=== PATIENT | male | born 1955 | race Two or more races ===

== ENCOUNTER → 2017-05-12 | Outpatient (CLI) | payer BC ==
[~2017-05-12] MED LIST: ASPI81CH CHEW; BETA0.1L; HYDR-3583 PO; MULT-65 PO; PRAV10TA PO; VITA1000 PO
== END ==
LOC: CPRE 11:39
PROVIDERS: ATTEND Neurological Surgery
DX: M47.12 Other spondylosis with myelopathy, cervical region (principal); M48.02 Spinal stenosis, cervical region

== ENCOUNTER 2017-05-15 06:03 | Inpatient (IN) | payer BC ==
--- NOTE | 2017-05-14 19:23 | MH ---
cc: ALLISON SANCHEZ MD, SUNITA M.D. KHANNA, ROHIT K. M.D. GORDON, JEREMY DC DATE OF ADMISSION: 05/15/2017 ADMITTING DIAGNOSIS: Cervical stenosis. HISTORY OF PRESENT ILLNESS: This is a 61-year-old male who presented to us for evaluation of weakness in his hands and difficulty with balance and walking. He states he has had several orthopedic surgeries, and after his left knee surgery in 2005 he started getting pain in his right leg. He states that his physician thought it was from compensating from his left knee being arthritic requiring surgery. He was referred to neurology who ordered an MRI of his neck. He was referred to Dr. Farnsworth, who obtained an MRI scan of his low back and recommended epidural steroid injections and physical therapy for his back. He states he has been having difficulty with walking and balance for the last six months. He states that when he is walking at times he feels that he is dragging his leg. He saw his chiropractor who states he would not treat his neck but did not do a decompression on his low back. He states that the chiropractor recommended that he come to our office for evaluation for his neck. He states that four days ago he had pressure sensation in his neck and went to the emergency room. He states that two months ago he had a pressure sensation in his neck and went to the emergency room. He was given pain medication and muscle relaxants which he continues to take. He states he has had chronic back pain for about five years but this was an acute exacerbation of his pain. He states he has tingling in the middle of his back. He denies any urinary frequency or bowel or bladder incontinence. He states he gets waves in his neck and posterior right triceps area. He tried to explain what he meant by "waves" and he says it is hard to describe; it is not pain, it is not numbness or tingling. He denies any radiculopathy into the upper extremities although he was having some shooting pain into the right triceps to the elbow with activity such as sweeping the floor and he states that he decreased his activity and this had improved it. He also states he has a history of carpal tunnel syndrome, which was initially diagnosed in 2010. He has had two surgeries for this in his right wrist. He states his symptoms improved but have not resolved. He currently complains of numbness and tingling in the right third and fourth fingers in particular. He denies any paresthesias in his left hand. He is right-handed and has noticed some weakness opening jars and opening bottles of water. PAST MEDICAL HISTORY: His past medical history is significant for: 1. History of asthma. 2. Prior history of myocardial infarction. PAST SURGICAL HISTORY: 1. Right total knee replacement in 2014. 2. Left total knee replacement in 2016. 3. Hernia surgery. 4. History of right carpal tunnel release x2. CURRENT MEDICATIONS: 1. Aspirin 81 milligrams p.o. daily. 2. Betamethasone topical 0.1% lotion. 3. Pravastatin 10 milligrams daily. ALLERGIES: PENICILLIN. REVIEW OF SYSTEMS: CONSTITUTIONAL: He denies any fever or chills. EARS, NOSE AND THROAT: No pharyngitis, exudates or bloody drainage from his nose. CARDIOVASCULAR: He denies any chest pain or palpitations. RESPIRATORY: No cough or shortness of breath. GASTROINTESTINAL: No nausea or vomiting or abdominal pain. INTEGUMENTARY: No rashes or pruritus. PSYCHIATRIC: No anxiety or depression symptoms. MUSCULOSKELETAL: Positive for neck pain. NEUROLOGIC: No difficulty with speech or memory. Positive for numbness in his right hand. SOCIAL HISTORY: No history of smoking. No history of alcohol use. PHYSICAL EXAMINATION: HEAD: Normocephalic, atraumatic. NECK: The neck is supple. No carotid bruits heard on auscultation. LUNGS: Clear to auscultation bilaterally. HEART: Regular rate and rhythm. Normal S1-S2. ABDOMEN: Soft, nontender. Positive bowel sounds. SKIN: Reveals no cyanosis or erythema. MUSCULOSKELETAL: He has 4/5 hand intrinsic strength otherwise 5/5 strength in the upper extremities. He ambulates with a very spastic gait without any assistive devices. NEUROLOGIC: He is awake, alert and oriented. Cranial nerves II through XII appear grossly intact. His speech is fluent. Comprehension is good. Sensation reveals numbness in the right third finger in particular otherwise intact in the extremities. REFLEXES: Reflexes are brisk in the lower extremities. He has mild clonus bilaterally. DATA REVIEWED: Reviewed an MRI of the cervical spine from December 10, 2016 which reveals moderate to severe C7-T1 spinal stenosis with intrinsic cord changes reflective of edema or myelomalacia as well as a grade 2 C7-T1 subluxation. He has multilevel disc protrusion and degeneration at other levels with overall mild stenosis. MRI of the lumbar spine from January 24, 2017 was also reviewed and shows a grade 1 L5-S1 spondylolisthesis with chronic pars defect and bilateral foraminal stenosis. He has a lesser degree of degenerative changes and stenosis at the L2-3 and L3-4 and L4-L5 levels. IMPRESSION: A 61-year-old male with progressively worsening neck pain and cervical myelopathy with weakness in his hands and unsteadiness in his gait for the last eight months. He also suffers from chronic low back pain. He has undergone physical therapy and pain management and he is followed by orthopedic spine surgery. He has undergone a lumbar spinal traction / decompression by his chiropractor. He has significant C7-t1 stenosis with subluxation and spinal cord compression with associated severe myelopathy. He has L5-S1 pars defect with a grade 1 spondylolisthesis and foraminal stenosis. PLAN: Given the severity of his myelopathy and spinal cord compression with subluxation at the C7-T1 level, we have recommended an urgent anterior C7-T1 discectomy with interbody fusion and cervical plate placement. The risks, benefits, alternatives and recovery time were explained in great detail with the patient. We have discussed the risks involved with surgery including but not limited to bleeding, infection, muscle weakness, voice hoarseness, difficulty swallowing, heart attack, stroke, blood clots, non-fusion, scar tissue formation among others. Rarely, exposure of the C7-T1 level requires a sternotomy by thoracic surgery, and this was also discussed. His symptoms from his myelopathy can take up to a year to improve and may not completely improve given the chronicity of his presentation. With regards to his lumbar spine, we recommend continued nonsurgical management for this at this point. We will obtain cardiac clearance also given his prior myocardial infarction history. The patient has delayed scheduling of surgery from his initial evaluation in February as he obtained his cardiac clearance and presented to discuss surgical options again. The patient at this point understands the risks of surgery. He has obtained cardiac clearance and he is requesting that we proceed and he is therefore scheduled accordingly. Dictated by Monty Ceravntes PA-C MD CARROLL Ritchie/HERMELINDA /6:35 PM /6:54 PM
[~2017-05-15] VITALS: Ht 170.2 cm; Wt 74.9 kg
[~2017-05-15 06:03] MED LIST changes: -HYDR-3583 PO
[2017-05-15] MEDS ORDERED: VANCOMYCIN HCL 1000 MG ON-CALL/NS 250 ML IV SCH ×2 (06:30)
[2017-05-15] MEDS ORDERED: METOPROLOL TARTRATE 25 MG TAB PO PRN (06:30)
[2017-05-15] MEDS ORDERED: INSULIN HUMAN REGULAR 1,000 UNITS/10 ML VIAL SQ PRN (06:30)
[2017-05-15] MEDS: SODIUM CHLOR 0.9% 1000 ML INJ 1,000 ML IV SCH (06:30)
[2017-05-15] MEDS ORDERED: CHLORHEXIDINE GLUCONATE 2 % 1 PACK (2 CLOTHS) TOPICAL PRN (06:30)
[2017-05-15] MEDS ORDERED: POVIDONE IODINE 5% (ANTISEPSIS KIT) 4 APPLICATIONS EACH NARE PRN (06:30)
[2017-05-15] MEDS ORDERED: LACTATED RINGER'S 1000 ML IV PRN (06:30)
[2017-05-15] MEDS ORDERED: SODIUM CHLORID 0.9% 500 ML IV PRN (06:30)
[2017-05-15 06:41] VITALS: BP 137/89; PULSE 76; RESP 18; TEMP 98.2; O2SAT 97
[2017-05-15] MEDS ORDERED: GELFOAM SIZE 100 ONE (06:58)
[2017-05-15] MEDS ORDERED: THROMBIN (TOPICAL) 5,000 UNIT VIAL ONE (06:58)
[2017-05-15] MEDS ORDERED: BUPIVACAINE/EPINEPHRINE 0.5% 50 ML VIAL ONE (07:00)
[2017-05-15] MEDS ORDERED: VANCOMYCIN HCL 1000 MG VIAL ONE (07:01)
[2017-05-15] MEDS ORDERED: MIDAZOLAM HCL 2 MG/2 ML VIAL ONE (07:02)
[2017-05-15] MEDS ORDERED: HYDROmorphone HCL PF 2 MG/ML VIAL ONE (07:02)
[2017-05-15] MEDS ORDERED: FAMOTIDINE 20 MG/2 ML VIAL ONE (07:02)
[2017-05-15] MEDS ORDERED: ACETAMINOPHEN 1000 MG/100 ML VIAL IV ONE (07:02)
[2017-05-15] MEDS ORDERED: ALUMINUM/MAGNESIUM/SIMETH 30 ML CUP PO PRN (11:15)
[2017-05-15] MEDS ORDERED: METOCLOPRAMIDE HCL 10 MG/2 ML VIAL IVS PRN (11:15)
[2017-05-15] MEDS ORDERED: ZOLPIDEM TARTRATE 5 MG TAB PO PRN (11:15)
[2017-05-15] MEDS ORDERED: MORPHINE SULFATE 4 MG/ML INJ IV PRN (11:15)
[2017-05-15] MEDS ORDERED: MENTHOL LOZENGE BUCCAL PRN (11:15)
[2017-05-15] MEDS ORDERED: cloNIDine HCL 0.1 MG TAB PO PRN (11:15)
[2017-05-15] MEDS ORDERED: RESP: ALBUTEROL 2.5 MG/3 ML NEB (PRN) NEB (11:15)
[2017-05-15] MEDS ORDERED: ACETAMINOPHEN/HYDROcodone 325 MG/10 MG TAB PO PRN ×2 (11:15)
[2017-05-15] MEDS ORDERED: MAGNESIUM HYDROXIDE SUSP 30 ML CUP PO PRN (11:15)
[2017-05-15] MEDS ORDERED: ONDANSETRON HCL 4 MG/2 ML VIAL IV PRN (11:15)
[2017-05-15] MEDS ORDERED: CYCLOBENZAPRINE HCL 10 MG TAB PO PRN (11:15)
[2017-05-15] MEDS ORDERED: SODIUM CHLORIDE 0.9% FLUSH 10 ML FLUSH IV FLUSH PRN (11:15)
[2017-05-15] MEDS ORDERED: ACETAMINOPHEN 325 MG TAB PO PRN (11:15)
--- NOTE | 2017-05-15 11:28 | PD.OP ---
MD Karla Phillips MD Operative Report Date of Surgery: May 15, 2017 Preoperative Diagnosis: Intractable neck pain with myeloradiculopathy; C7-T1 disc osteophyte complex with subluxation and associated spinal stenosis and cord compression Postoperative Diagnosis: Same Procedure: Anterior C7-T1 interbody fusion; partial C7 and T1 corpectomies; anterior C7-T1 plate placement; C7-T1 interbody cage placement; microsurgical technique Anesthesia: Gen. endotracheal by Noel Alvarez Surgeon: Shant Martins M.D. Senior Information Security Engineer(s): Brandon Holman Operation and Findings: Following administration of general endotracheal anesthesia with the neck maintained in neutral position in a Carlton collar, the patient received a gram of vancomycin and Decadron 10 mg intravenously. Sequential compression devices were placed in supine position on a Isaiah table and all pressure points adequately padded. The head secured in a donut and anterior cervical region then shaved and prepped with Chloraprep and sterilely draped with Ioban along with the usual sterile draping. A transverse skin incision on the left side of the neck was then made after infiltrating the skin with 0.5% Marcaine with epinephrine solution extending down through the platysma. At the anterior border of the sternocleidomastoid further dissection was undertaken developing a plane between the carotid sheath laterally and the trachea esophagus medially. The prevertebral fascia was exposed and dissected out. The medial attachments of the longus colli muscles were detached and a self-retaining retractor used for exposure. The C7-T1 disc space was localized with a marking the disc space and using lateral fluoroscopy. There were anterior osteophytes and disc degeneration noted along with subluxation of C7 anterior to T1. Bend distraction screws 14 mm length were placed one in the C7 and one in the T1 body interbody distraction and exposure. There was significant disc degeneration with disc height collapse and anterior osteophytes noted at the C7- T1 level and the osteophytes were resected with a Leksell and annulus incised with a 15 blade and further dissection undertaken using microtechnique with microscope magnification. Diskectomy was undertaken with pituitaries and the endplates were also decorticated with curettes and drill bit. And more posteriorly there was disk osteophyte complex compressing the thecal sac along with a significant uncovertebral joint hypertrophy with foraminal stenosis which was decompressed along with removal of the posterior longitudinal ligaments at both levels. The foramen was decompressed bilaterally using a Kerrison's and palpation with a nerve hook, the exiting nerve roots were felt to be free. Given the very low nature of this disc space and the angle of the exposure in order decompress the spinal canal partial corpectomies with removal of the inferior portion of C7 and portion of T1 had to be undertaken.. The area was then copiously irrigated. I then placed a Peek cage packed with local autograft bone at the C7-T1 interspace under fluoroscopy guidance. Bend distraction pins were removed and the holes plugged with Gelfoam for hemostasis. In order to facilitate the fusion and provide stabilization, a Precision spine cervical plate was then placed with two 14 mm variable angle screws in the T1 body and two 14 mm fixed angle screws in the C7 body. The plate screw locking mechanism was then engaged. AP and lateral fluoroscopy confirmed good placement of the construct and the retractor was then removed. Muscular bleeding points were cauterized with bipolar cautery and Gelfoam was then also used for hemostasis which was removed. The platysma was then approximated using 3-0 Vicryl interrupted stitches and 3-0 Vicryl subcuticular stitch also placed in an interrupted fashion, and final skin closure was with Mastisol and Steri-Strips. Sterile dressing was then applied. The neck was immobilized in a Carlton collar. The patient was then extubated and taken to the recovery room. There are no intraoperative complications and all sponge and needle counts were correct at the end of procedure. Estimated blood loss was about 50 cc. The patient did undergo intraoperative neurologic monitoring which remained stable throughout the surgery. Shant Martins MD May 15, 2017 11:28
--- NOTE | 2017-05-15 11:36 | RADRPT ---
EXAM DATE/TIME: 05/15/2017 08:54 [facility] COMPARISON: No previous studies available for comparison. INDICATIONS : Post-op C7-T1 anterior cervical fusion. MEDICAL HISTORY : None. SURGICAL HISTORY : None. ENCOUNTER: Initial ACUITY: 1 day PAIN SCORE: Non-responsive. LOCATION: neck FINDINGS: AP and lateral views of the cervical spine were obtained intraoperatively using a matrix camera. This demonstrates rhat the patient is status post anterior cervical fusion at C7-T1 level with a screw-pl ate fixation device. There is a metallic marker in the interspace. Degenerative disc changes are pres ent at the C3-4 through C6-7 levels. There is a mild grade 1 anterior spondylolisthesis of C4 on C5. An endotracheal tube is present. CONCLUSION: Status post anterior cervical fusion at C7-T1. Junior Knapp MD on May 15, 2017 at 11:33 Board Certified Radiologist. This report was verified electronically.
[2017-05-15] MEDS ORDERED: DO NOT ADM ANY ANTICOAGULANT DRUGS PRN (11:40)
[2017-05-15] MEDS ORDERED: LACTATED RINGER'S 1000 ML INJ 1,000 ML IV ONE (12:00)
[2017-05-15] MEDS ORDERED: PROPOFOL 200 MG/20 ML AMP IV ONE (12:00)
[2017-05-15] MEDS ORDERED: NS + KCL 20 MEQ INJ 1,000 ML IV SCH (12:00)
[2017-05-15] MEDS ORDERED: PHENYLEPH/NS 1000 MCG/10 ML SYR IV ONE (12:00)
[2017-05-15] MEDS ORDERED: NORMOSOL R INJ 1,000 ML IV ONE (12:00)
[2017-05-15] MEDS ORDERED: DEXAMETHASONE SOD PHOS 4 MG/ML VIAL IV ONE (12:00)
[2017-05-15] MEDS ORDERED: ePHEDrine/NS 25 MG/5 ML SYR IV ONE (12:00)
[2017-05-15] MEDS ORDERED: NEOSTIGMINE 3 MG/3 ML SYR IV ONE (12:00)
[2017-05-15] MEDS: DEXAMETHASONE SOD PHOS 4 MG/ML VIAL IV SCH ×2 (12:00→16:50)
[2017-05-15] MEDS ORDERED: ONDANSETRON HCL 4 MG/2 ML VIAL IV PUSH ONE (12:00)
[2017-05-15 12:31] VITALS: O2SAT 97
[2017-05-15 15:00] VITALS: BP 137/94; PULSE 96; RESP 18; TEMP 96.9; O2SAT 96
[2017-05-15 20:00] VITALS: BP 139/79; PULSE 96; RESP 16; TEMP 97.6; O2SAT 96
[2017-05-15] MEDS ORDERED: PRAVASTATIN SOD 10 MG TAB PO SCH (21:00)
[2017-05-15] MEDS ORDERED: SODIUM CHLORIDE 0.9% FLUSH 10 ML FLUSH IV FLUSH SCH (21:00)
[2017-05-15] MEDS: DOCUSATE SODIUM 100 MG CAP PO SCH (21:13)
[2017-05-15] MEDS ORDERED: VANCOMYCIN INJ 1,000 MG in SODIUM CHLOR 0.9% 250 ML INJ 250 ML IV SCH (22:00)
[2017-05-16] VITALS: BP 127/88; PULSE 86; RESP 16; TEMP 98.4; O2SAT 97
[2017-05-16] MEDS: DEXAMETHASONE SOD PHOS 4 MG/ML VIAL IV SCH (00:11)
[2017-05-16] MEDS: SODIUM CHLOR 0.9% 1000 ML INJ 1,000 ML IV SCH (00:12)
[2017-05-16 04:00] VITALS: BP 143/89; PULSE 90; RESP 16; TEMP 97.8; O2SAT 96
[2017-05-16 08:00] VITALS: BP 142/84; PULSE 89; RESP 18; TEMP 96.2; O2SAT 96
[2017-05-16] MEDS: DOCUSATE SODIUM 100 MG CAP PO SCH (08:20)
[2017-05-16] MEDS ORDERED: CHOLECALCIFEROL (VIT D3) 1000 UNIT TAB PO SCH (09:00)
[2017-05-16] MEDS ORDERED: MULTIVITAMIN TAB PO SCH (09:00)
[2017-05-16] MEDS ORDERED: PANTOPRAZOLE SOD 40 MG DELAYED RELEASE TAB PO SCH (09:00)
--- NOTE | 2017-05-16 10:08 | HHI.NSPN ---
(Monty Cervantes) History Chief Complaint: Mild incisional pain. (Monty Cervantes) Interval History 05/16/17: Pt awake and alert. Mild incisional discomfort. No radiculopathy in UEs. Mild paresthesias in right hand. Pt has not been oob yet ambulating. ( Monty Cervantes) Review of Systems General: Negative for: fever, chills, insomnia Respiratory: Negative for: shortness of breath, cough, sputum Cardiovascular: Negative for: chest pain Gastrointestinal: Negative for: nausea, vomitting, diarrhea, constipation ( Monty Cervantes) Exam Results Vital Signs Date Time Temp Pulse Resp B/P Pulse Ox O2 Delivery O2 Flow Rate FiO2 05/16/17 08:00 96.2 89 18 142/84 96 05/15/17 14:30 Nasal Cannula 2 05/15/17 12:31 40 Intake and Output 05/15/17 05/15/17 05/16/17 08:00 16:00 00:00 Intake Total 1800 ml 1620 ml Output Total 100 ml 650 ml Balance 1700 ml 970 ml (Monty Cervantes) Physical Examination Resp: CTA bilaterally Heart: NSR no murmurs Abd: Soft positive bs Skin: Bandage changed by RN this am. Muscle: Moves all 4 extremities with good strength. Cervical collar in place. Neuro: Pt awake and alert. Follows commands. Speech clear and appropriate. ( Monty Cervantes) Lab, Micro, Other Results 05/15/17 05/15/17 05/16/17 15:00 23:00 07:00 Intake Total 1800 ml 1620 ml 651 ml Output Total 100 ml 650 ml Balance 1700 ml 970 ml 651 ml Intake Oral 720 ml 360 ml IV Total 900 ml 291 ml Other 1800 ml Output Urine Total 650 ml Estimated Blood Loss 100 ml # Voids 2 (Monty Cervantes) Medical Decision Making Impression and Plan A: 61 y/o M s/p C7/T1 anterior cervical fusion with cage and plate placement. P: Ambulate pt. Depending on his steadiness possibly discharge home. (Monty Cervantes) Attending Statement The exam, history, and the medical decision-making described in the above note were completed with the assistance of the mid-level provider. I reviewed and agree with the findings presented. I attest that I had a [id number] encounter with the patient on the same day, and personally performed and documented my assessment and findings in the medical record. Tolerating regular diet and ambulating better postoperatively. Patient and his and sister are very pleased with the results. We'll discharge home today with home physical therapy and follow-up in clinic as scheduled. (Shant Martins MD) Monty Cervantes May 16, 2017 10:08 Shant Martins MD May 16, 2017 11:02
[2017-05-16] MEDS ORDERED: HYDR-3583 PO (10:32)
--- NOTE | 2017-05-16 10:34 | HHI.FF ---
Face to Face Verification Diagnosis: (1) Myelopathy, spondylogenic, cervical (2) Cervical disc disorder with radiculopathy (3) Degenerative cervical spinal stenosis (4) Degenerative disc disease, cervical (5) Lumbar degenerative disc disease (6) Pars defect of lumbar spine (7) Spondylolisthesis at L5-S1 level (8) Low back pain Physical Therapy Order: Evaluate and Treat, Improve ambulation, Strength and gait training Instructions: LE strength only. Gait training. Home Health Nursing Order: Wound care and dressing changes Nursing assessment with vital signs I have seen patient Randy Melo on 05/16/17. My clinical findings support the need for the requested home health care services because: Deconditioned w/ increased weakness High risk of falls I certify that my clinical findings support that this patient is homebound because: Unsteady gait/balance Unable to use public transportation Monty Cervantes May 16, 2017 10:34
[2017-05-16 12:00] VITALS: BP 148/76; PULSE 82; RESP 18; TEMP 97.4; O2SAT 96
== END 2017-05-16 14:22 | disposition home health service (06) | DRG 472 ==
LOC: HSDC 06:03 → HSDI 11:20 → OBSVTOIN 13:48 → N06A 14:49
PROVIDERS: ADMIT Neurological Surgery; ATTEND Neurological Surgery
PROC: 0RT50ZZ Resection of Cervicothoracic Vertebral Disc, Open Approach (ICD-10-PCS; 2017-05-15)
PROC: 4A1004G Monitoring of Central Nervous Electrical Activity, Intraoperative, Open Approach (ICD-10-PCS; 2017-05-15)
PROC: 0RG40A0 Fusion of Cervicothoracic Vertebral Joint with Interbody Fusion Device, Anterior Approach, Anterior Column, Open Approach (ICD-10-PCS; principal; 2017-05-15 08:36)
DX: M47.12 Other spondylosis with myelopathy, cervical region (principal); G95.20 Unspecified cord compression; G95.89 Other specified diseases of spinal cord; M50.03 Cervical disc disorder with myelopathy, cervicothoracic region; M48.04 Spinal stenosis, thoracic region; M48.02 Spinal stenosis, cervical region; Z96.653 Presence of artificial knee joint, bilateral; M25.78 Osteophyte, vertebrae; I25.2 Old myocardial infarction; G89.29 Other chronic pain; J45.909 Unspecified asthma, uncomplicated; R20.9 Unspecified disturbances of skin sensation; M43.17 Spondylolisthesis, lumbosacral region
CPT/HCPCS: 72040; 76000; 94150; C1713; J0131; J1100; J1170; J2250; J2370; J2405; J2710; J3370; J7030; J7050; J7120; L0150; L0172